=== PATIENT | female | born 1990 | race Two or more races ===

== ENCOUNTER 2017-06-06 06:18 | Emergency (ER) | payer MEDICAID, OTHER ==
[2017-06-06] MEDS ORDERED: NORMAL SALINE 1000 ML 1,000 ML IV ONE (06:45)
[2017-06-06] MEDS ORDERED: KETOROLAC TROMETHAMINE INJ/PF 30 MG/1 ML SDV IV ONE (07:47)
[2017-06-06] MEDS ORDERED: FAMOTIDINE INJ/PF 20 MG/2 ML SDV IV ONE (07:47)
[2017-06-06] MEDS ORDERED: LIDOCAINE 2% VISCOUS SOLN 20 ML UDCUP PO ONE (07:47)
[2017-06-06] MEDS ORDERED: MAG HYDROX/AL HYDROX/SIMETH SUSP 30 ML UDCUP PO ONE (07:47)
[2017-06-06] MEDS ORDERED: ONDANSETRON HCL INJ/PF 4 MG/2 ML SDV IV ONE (07:47)
--- NOTE | 2017-06-06 07:52 | ER Document Report ---
ED General <RAS FRASER - Last Filed: 06/06/17 11:03> - General Mode of Arrival: Ambulatory Information source: Patient TRAVEL OUTSIDE OF THE [place] IN LAST 30 DAYS: No - HPI Onset: Yesterday Onset/Duration: Sudden Quality of pain: Burning Severity: Severe <FIDEL CEDEÑO - Last Filed: 06/07/17 06:03> - General Chief Complaint: Epigastric Pain Stated Complaint: UPPER ABDOMINAL PAIN WITH VOMITING Time Seen by Provider: 06/06/17 07:39 Notes: Patient is a 26 year old female presenting to the emergency department complaining of epigastric and right upper quadrant abdominal pain onset at 2300 last night. Patient describes the pain as a burning sensation that goes into her back. Patient states that the pain has not gone away and she also has had nausea and vomiting. Patient states that she has "never had a pain like this before". Patient states that she recently gave on 05/09/2017 and she is currently breast feeding. Patient states that she also takes iron pills. (FIDEL CEDEÑO) - Related Data Allergies/Adverse Reactions: No Known Allergies Allergy (Unverified 06/06/17 07:44) Past Medical History - General Information source: Patient - Social History Smoking Status: Unknown if Ever Smoked Family History: Reviewed & Not Pertinent Patient has suicidal ideation: No Patient has homicidal ideation: No <FIDEL CEDEÑO - Last Filed: 06/07/17 06:03> Review of Systems - Review of Systems Constitutional: No symptoms reported EENT: No symptoms reported Cardiovascular: No symptoms reported Respiratory: No symptoms reported Gastrointestinal: See HPI, Abdominal pain, Nausea, Vomiting Genitourinary: No symptoms reported Female Genitourinary: No symptoms reported Musculoskeletal: No symptoms reported Skin: No symptoms reported Hematologic/Lymphatic: No symptoms reported Neurological/Psychological: No symptoms reported -: Yes All other systems reviewed and negative <FIDEL CEDEÑO - Last Filed: 06/07/17 06:03> Physical Exam <RAS FRASER - Last Filed: 06/06/17 11:03> - General General appearance: Alert In distress: Mild - HEENT Head: Normocephalic Eyes: Normal Conjunctiva: Normal Pupils: PERRL - Respiratory Respiratory status: No respiratory distress Chest status: Nontender Breath sounds: Normal - Cardiovascular Rhythm: Regular Heart sounds: Normal auscultation - Abdominal Inspection: Normal Distension: No distension Bowel sounds: Normal Tenderness: Tender - tender to palpation across the RUQ and epigastric area Organomegaly: No organomegaly - Back Back: Normal - Extremities General upper extremity: Normal inspection, Normal ROM General lower extremity: Normal inspection, Normal ROM - Neurological Neuro grossly intact: Yes Cognition: Normal Orientation: AAOx4 Yoal Coma Scale Eye Opening: Spontaneous [place] Coma Scale Verbal: Oriented [place] Coma Scale Motor: Obeys Commands Yola Coma Scale Total: 15 Speech: Normal - Psychological Associated symptoms: Normal affect, Normal mood - Skin Skin Temperature: Warm Skin Moisture: Dry Skin Color: Normal <FIDEL CEDEÑO - Last Filed: 06/07/17 06:03> - Vital signs Vitals: Temp Pulse Resp BP Pulse Ox 98.3 F 82 20 104/82 100 06/06/17 06:23 06/06/17 06:23 06/06/17 06:23 06/06/17 06:23 06/06/17 06:23 - General Notes: At bedside patient is leaned over. (FIDEL CEDEÑO) Course - Laboratory Result Diagrams: 06/06/17 07:35 06/06/17 07:35 <RAS FRASER - Last Filed: 06/06/17 11:03> - Laboratory Result Diagrams: 06/06/17 07:35 06/06/17 07:35 <FIDEL CEDEÑO - Last Filed: 06/07/17 06:03> - Re-evaluation Re-evalutation: 06/06/17 11:03 The patient does feel much better at this time. She is pumping her breasts at this time. She does feel that the GI cocktail may have diminished her pain and be the reason it feels so much better. The gallbladder ultrasound shows gallstones, no filling defects or dilatation in the common bile duct or the intrahepatic ducts. There is no gallbladder wall thickening or pericholecystic fluid. The alk phos is 110 total bilirubin is 1.4 and direct bilirubin is 0.9. Her AST is 303 and her ALT is 199, she did deliver 4 weeks ago. (RAS FRASER) - Vital Signs Vital signs: Temp Pulse Resp BP Pulse Ox 98.6 F 82 11 L 109/62 98 06/06/17 11:34 06/06/17 06:23 06/06/17 11:34 06/06/17 11:34 06/06/17 11:34 - Laboratory Laboratory results interpreted by me: 06/06/17 06/06/17 07:35 07:35 WBC 13.1 H Hgb 11.2 L Hct 35.8 L MCV 76 L MCH 23.6 L MCHC 31.2 L RDW 20.4 H Seg Neutrophils % 87.6 H Lymphocytes % 8.6 L Absolute Neutrophils 11.5 H Glucose 128 H Total Bilirubin 1.4 H Direct Bilirubin 0.9 H AST 303 H ALT 199 H Discharge <RAS FRASER - Last Filed: 06/06/17 11:03> <FIDEL CEDEÑO - Last Filed: 06/07/17 06:03> - Discharge Clinical Impression: Gallstones GERD (gastroesophageal reflux disease) Qualifiers: Esophagitis presence: without esophagitis Qualified Code(s): K21.9 - Gastro- esophageal reflux disease without esophagitis Condition: Stable Disposition: HOME, SELF-CARE Additional Instructions: Reflux Disease (GERD) Gastro-Esophageal Reflux Disease (GERD) is caused by stomach acid refluxing back up into the esophagus. The valve at the end of the esophagus may be weak. This is common in persons with a hiatal hernia. GERD symptoms can include indigestion, chest pain, heartburn, or food "sticking." Certain foods, alcohol, and aspirin can make GERD worse. Treatment depends on the severity. Usually, antacids or acid-suppressing medicines are used. When the esophagus is acutely inflamed, the physician will often prescribe membrane-protective drugs such as Carafate. Some patients benefit from medication such as Reglan that tightens the valve at the top of the stomach. Avoid those foods that bring on your symptoms. For many people, these foods are coffee, chocolate, onions, garlic, and carbonated drinks. Don't use alcohol, aspirin, caffeine, or tobacco. Don't eat late at night -- within 4 hours of bedtime. Don't over-eat. If necessary, elevate the head of your bed about 4 inches so that stomach acid will not roll up into your esophagus. Call the doctor if you develop severe chest pain, inability to swallow fluids, fever, or worsening symptoms. Gallbladder Disease Your evaluation shows evidence of gallbladder disease. The gallbladder is a pouch under the liver which stores bile. Stones, infection, or irritation of the gallbladder cause attacks of pain. Certain foods -- fats in particular -- may provoke attacks. The usual treatment for gallbladder disease is surgical removal of the gallbladder -- called a cholecystectomy. You will be referred to a physician qualified to advise you on the best treatment for your problem. Hospitalization is not necessary. Take clear liquids only until you are painfree. After that, you should stay on a low-fat diet, with frequent SMALL meals. Call the doctor or return at once if you develop severe pain, repeated vomiting, fever, or jaundice (a yellow color in the skin and whites of the eyes) . //////////////////////////////////////////////////////////////////////////////// //////////////////////////////////////////////////////////////////////////////// /////////////////// Most of your epigastric pain was probably due to gastroesophageal reflux. You do have gallstones without evidence of gallbladder inflammation. You should go on a low-fat diet for the gallstone problem, and be on a very bland diet for the next few days for the reflux problem. Take Mylanta between meals and at bedtime. Get Prilosec OTC and take 1 every day. Take the pain medications if needed, you can take 1 pill when the pain starts, you can take an additional pill 2 hours later if you continue to have pain. After that you should take the medicine every 6 hours if you are having pain. If the pain continues greater than 24 hours you should return to the emergency room. When you do return home, you should take the CD disc of the gallbladder ultrasound, and the copies of the lab work to your primary care provider or a local general surgeon. RETURN TO THE EMERGENCY ROOM IF ANY NEW OR WORSENING SYMPTOMS. Prescriptions: Hydrocodone/Acetaminophen [Hydrocodon-Acetaminophen 5-325] 1 each PO Q6 #15 tablet Forms: Parent Work Note Scribe Attestation: 06/06/17 08:22 I personally performed the services described in the documentation, reviewed and edited the documentation which was dictated to the scribe in my presence, and it accurately records my words and actions. (RAS FRASER) Scribe Documentation - Scribe Written by Russellibe:: Edwin Verdugo, 06/06/2017 07:52 acting as scribe for :: Gloria <FIDEL CEDEÑO - Last Filed: 06/07/17 06:03>
[2017-06-06 07:55] LABS: ABSOLUTE LYMPHOCYTES (AUTO) 1.1 10^3/uL (0.5-4.7); ABSOLUTE MONOCYTES (AUTO) 0.4 10^3/uL (0.1-1.4); ABSOLUTE NEUT (AUTO) 11.5 10^3/uL (1.7-8.2); BASOPHILS % (AUTO) 0.4 % (0-2); HEMATOCRIT 35.8 % (36.0-47.0); HEMOGLOBIN 11.2 g/dL (12.0-15.5); HGB HCT DIFFERENCE -2.2; LYMPHOCYTES % (AUTO) 8.6 % (13-45); MEAN CORPUSCULAR HEMOGLOBIN 23.6 pg (27.0-33.4); MEAN CORPUSCULAR HGB CONC 31.2 g/dL (32.0-36.0); MEAN CORPUSCULAR VOLUME 76 fl (80-97); MONOCYTES % (AUTO) 3.4 % (3-13); RED BLOOD COUNT 4.72 10^6/uL (3.72-5.28); RED CELL DISTRIBUTION WIDTH 20.4 % (11.5-14.0); SEGMENTED NEUTROPHILS % (AUTO) 87.6 % (42-78); WHITE BLOOD COUNT 13.1 10^3/uL (4.0-10.5)
[2017-06-06 08:05] LABS: ALANINE AMINOTRANSFERASE 199 U/L (9-52); ALBUMIN 4.3 g/dL (3.5-5.0); ALKALINE PHOSPHATASE 110 U/L (38-126); ANION GAP 12 (5-19); ASPARTATE AMINO TRANSFERASE 303 U/L (14-36); BILIRUBIN,DIRECT 0.9 mg/dL (0.0-0.4); BILIRUBIN,TOTAL 1.4 mg/dL (0.2-1.3); BLOOD UREA NITROGEN 13 mg/dL (7-20); CALCIUM 9.9 mg/dL (8.4-10.2); CARBON DIOXIDE 25 mmol/L (22-30); CHLORIDE 102 mmol/L (98-107); CREATININE RESULT 0.62 mg/dL (0.52-1.25); GLUCOSE 128 mg/dL (75-110); POTASSIUM 4.3 mmol/L (3.6-5.0); SODIUM 138.6 mmol/L (137-145); TOTAL PROTEIN 7.5 g/dL (6.3-8.2)
[2017-06-06] MEDS ORDERED: MORPHINE SULFATE 10 MG/ML INJ IV ONE (08:22)
--- NOTE | 2017-06-06 09:03 | RADIOLOGY REPORT (SQ) ---
EXAM DESCRIPTION: U/S ABDOMEN LIMITED W/O DOP COMPLETED DATE/TIME: 06/06/2017 8:56 am REASON FOR STUDY: 4wks , RUQ abd pain goes into back COMPARISON: None. TECHNIQUE: Dynamic and static grayscale images acquired of the abdomen and recorded on PACS. Additio nal selected color Doppler and spectral images recorded. LIMITATIONS: None. FINDINGS: PANCREAS: No masses. Visualized pancreatic duct normal caliber. LIVER: No masses. Echotexture normal. LIVER VASCULATURE: Normal directional flow of the main portal vein and hepatic veins. GALLBLADDER: Echodensity along the dependent wall of gallbladder consistent with gallstones. No thic kening of gallbladder wall. No pericholecystic fluid collection. ULTRASOUND-DETECTED LOVELACE'S SIGN: Negative. INTRAHEPATIC DUCTS AND COMMON DUCT: CBD and intrahepatic ducts normal caliber. No filling defects. INFERIOR VENA CAVA: Normal flow. AORTA: No aneurysm. RIGHT KIDNEY: Normal size. Normal echogenicity. No solid or suspicious masses. No hydronephrosis. No calcifications. PERITONEAL AND RIGHT PLEURAL SPACE: No ascites or effusions. OTHER: No other significant finding. IMPRESSION: GALLSTONES. OTHERWISE NORMAL RIGHT UPPER QUADRANT ULTRASOUND. TECHNICAL DOCUMENTATION: JOB ID: [id number] [employer]- All Rights Reserved
[2017-06-06 09:40] LABS: ADD ON TESTING BLD IN LAB ACKNOWLEDGE
[2017-06-06 10:03] LABS: LIPASE 107.6 U/L (23-300)
[2017-06-06 11:38] VITALS: BP 109/62
== END 2017-06-06 11:37 | disposition home or self-care (01) ==
LOC: ER 06:18
DX: K80.20 Calculus of gallbladder without cholecystitis without obstruction (principal); O99.63 Diseases of the digestive system complicating the puerperium; K21.9 Gastro-esophageal reflux disease without esophagitis; O90.89 Other complications of the puerperium, not elsewhere classified; R10.13 Epigastric pain; R10.11 Right upper quadrant pain; R11.2 Nausea with vomiting, unspecified; Z79.899 Other long term (current) drug therapy
CPT/HCPCS: 99284; 96361; 96374; 96375; 36415; 83690; 85025; 80053; 76705; J3490; J1885; J2270; J2405; J7030; S0028